=== PATIENT | female | born 1950 | race Caucasian/White ===

== ENCOUNTER 2022-12-12 10:08 | Day surgery (SDC) | payer MEDICARE, BC ==
[2022-12-05 15:22] LABS: BASOPHILS % (AUTO) 0.9 % (0-1); EOSINOPHILS # (AUTO) 0.2 X10'3 (0-0.9); EOSINOPHILS % (AUTO) 3.4 % (0-6); LYMPHOCYTES # (AUTO) 1.4 X10'3 (1.1-4.8); LYMPHOCYTES % (AUTO) 25.5 % (21-51); MEAN CORPUSCULAR HEMOGLOBIN 32.8 PG (27.0-31.0); MEAN CORPUSCULAR HGB CONC 33.3 g/dL (33.0-36.5); MEAN CORPUSCULAR VOLUME 98.5 FL (78-98); MEAN PLATELET VOLUME 8.1 FL (7.4-10.4); MONOCYTES # (AUTO) 0.6 X10'3 (0-0.9); MONOCYTES % (AUTO) 10.3 % (2-12); NEUTROPHILS # (AUTO) 3.2 X10'3 (1.8-7.7); NEUTROPHILS % (AUTO) 59.9 % (42-75); PRE OP HEMATOCRIT 38.9 % (35.0-45.0); PRE OP HEMOGLOBIN 12.9 g/dL (12.0-16.0); PRE OP PLATELET COUNT 250 X10'3 (140-440); RED BLOOD COUNT 3.95 X10'6 (4.20-5.60); RED CELL DISTRIBUTION WIDTH 13.1 % (11.5-14.5)
[2022-12-05 15:40] LABS: ALBUMIN 3.4 G/DL (3.4-5.0); ALKALINE PHOSPHATASE 98 IU/L (46-116); BLOOD UREA NITROGEN 15 MG/DL (7-18); BUN/CREATININE RATIO 19.7 (10.0-20.0); CALCIUM 8.6 MG/DL (8.5-10.1); CHLORIDE 107 MMOL/L (99-107); CREATININE 0.76 MG/DL (0.40-0.90); PRE OP ALT 19 U/L (30-65); PRE OP ANION GAP 7 (8-16); PRE OP AST 23 U/L (10-37); PRE OP BILIRUB, TOTAL 0.2 MG/DL (0.0-1.0); PRE OP GLUCOSE 93 MG/DL (70-104); PRE OP POTASSIUM 3.6 MMOL/L (3.4-5.1); PRE OP SODIUM 142 MMOL/L (135-145); TOTAL CARBON DIOXIDE 27.9 MMOL/L (24-32); TOTAL PROTEIN 6.7 G/DL (6.4-8.2); eGFR 75 ML/MIN
[2022-12-12] VITALS (7 sets, daily range): BP systolic 130–156; BP diastolic 81–107
[~2022-12-12] VITALS: Ht 165.1 cm; Wt 65.9 kg
[~2022-12-12 10:08] MED LIST: LEVO125T8 PO; LIDOcaine-PF 1% 20mL vial 20 ML VIAL IJ ONE; cefazolin 2gm/D5W 100mL 100 ML IV ONE; famotidine 20mg tablet PO ONE; ringers solution, lacted 1,000 ML IV SCH
[2022-12-12] MEDS ORDERED: BUPIVAcaine/PF 2.5 mg/ml (0.25%) 30ml vial ONE (12:31)
[2022-12-12] MEDS ORDERED: dexamethasone sod phosphate 10mg/ml inj ONE (12:42)
[2022-12-12] MEDS ORDERED: sevoflurane 250ml liquid IH ONE (12:42)
[2022-12-12] MEDS ORDERED: fentaNYL/PF 50MCG/1 ML 2ML syringe ONE (12:47)
[2022-12-12] MEDS ORDERED: midazolam 1 mg/ML 2ml injection ONE (12:48)
[2022-12-12] MEDS ORDERED: propofol inj 20 ML IV ONE (12:49)
[2022-12-12] MEDS ORDERED: morphine 2 MG/ML inj. syringe IV PRN (13:30)
[2022-12-12] MEDS ORDERED: morphine 4 MG/ML inj SYRINge IV PRN (13:30)
[2022-12-12] MEDS ORDERED: proCHLORperazine 10 MG/2 ml inj IV PRN (13:30)
[2022-12-12] MEDS ORDERED: ringers solution, lacted 1,000 ML IV SCH (13:30)
[2022-12-12] MEDS ORDERED: ondansetron/PF 4mg/2ml inj IV PRN (13:30)
[2022-12-12] MEDS ORDERED: meperidine/PF 25mg/ml syringe IV PRN ×3 (13:30)
[2022-12-12] MEDS ORDERED: acetaminophen 1,000mg/100ml IV 100 ML IV ONE (13:44)
[2022-12-12] MEDS ORDERED: rocuronium 10mg/ml inj IV ONE (13:44)
[2022-12-12] MEDS ORDERED: glycopyrrolate 0.2mg/ml inj ONE (13:55)
[2022-12-12] MEDS ORDERED: neostigmine methylsulfate 1 MG/ML 10ml vial ONE (13:55)
[2022-12-12] MEDS ORDERED: ondansetron/PF 4mg/2ml inj ONE (13:55)
[2022-12-12] MEDS ORDERED: HYDROcodone/acetaminophen 5mg/325mg tablet PO PRN (14:00)
--- NOTE | 2022-12-12 14:15 | NUR ---
Received from OR via [facility], accompanied by Anesthesiologist DR GUERRERO and report given by Anesthesiologist. PT IS GROGGY BUT RESPONDS TO VERBAL STIMULI AND FOLLOWS COMMANDS. PT PLACED ON BEDSIDE MONITOR, VSS. PT IS IN SR WITH RATE IN LOW 90'S. PT RECEIVING 10L O2 TO MASK AND TOLERATING WELL WITH O2 SAT >96%. WILL TITRATE DOWN PT TOLERATES. PT HAS 20G PIV TO LEFT LOW FA WITH LR INFUSING ORDERED. PT HAS 3 BAND-AIDS TO MID ABD THAT ARE ALL CDI. PT DENIES PAIN AT THIS TIME. WILL CONTINUE TO ASSESS
--- NOTE | 2022-12-12 15:34 | NUR ---
DC HOME: ALL DISCHARGE CRITERIA HAS BEEN MET. VSS, PAIN AT A TOLERABLE LEVEL, ABLE TO SAFELY AMBULATE AND TRANSFER SELF. IV TAKEN OUT WITHOUT ANY COMPLICATIONS. ALL DISCHARGE INSTRUCTIONS COVERED WITH PATIENT AND ALL QUESTIONS ANSWERED. PATIENT TAKEN OUT VIA WHEELCHAIR TO PERSONAL VEHICLE WHERE DROVE PATIENT HOME.
== END 2022-12-12 15:26 | disposition home or self-care (01) ==
LOC: PAS 10:08
PROVIDERS: ATTEND Surgery
DX: K40.90 Unilateral inguinal hernia, without obstruction or gangrene, not specified as recurrent (principal); E03.9 Hypothyroidism, unspecified; M19.90 Unspecified osteoarthritis, unspecified site; Z85.828 Personal history of other malignant neoplasm of skin; Z79.899 Other long term (current) drug therapy; Z98.890 Other specified postprocedural states; Z72.89 Other problems related to lifestyle; Z87.891 Personal history of nicotine dependence; Z90.710 Acquired absence of both cervix and uterus; Z80.0 Family history of malignant neoplasm of digestive organs; Z82.61 Family history of arthritis
CPT/HCPCS: 36415; 49650; 80053; 82948; 85025; C1781; J0131; J0690; J2175; J2250; J2405; J2704; J2710; J3010; J3490; J7030; J7120; Z7506; Z7508; Z7512; A4215; A4618; J1100